=== PATIENT | male | born 1985 | race Caucasian/White ===

== ENCOUNTER 2016-06-20 07:49 | Emergency (ER) | payer SELFPAY ==
[2016-06-20 08:39] LABS: Hematocrit 41 % (42-52); Hemoglobin 14.9 g/dl (14.0-18.0); Mean Corpuscular HGB Conc 36 g/dl (31-36); Mean Corpuscular Hemoglobin 33 pg (27-31); Mean Corpuscular Volume 92 fL (80-94); Mean Platelet Volume 8 um3 (7.4-10.4); Red Cell Distribution Width 13 % (10.5-15); White Blood Count 9.1 10^3/ul (3.5-10.8)
[2016-06-20 08:40] LABS: Comments Flag Yes
[2016-06-20 08:56] LABS: Albumin 4.4 g/dL (3.2-5.2); Calcium 9.2 mg/dL (8.6-10.3); EGFR African American 124.2 (>60); EGFR Non-African American 96.6 (>60); Globulin 3.6 g/dL (2-4); Total Bilirubin 0.4 mg/dL (0.2-1.0)
--- NOTE | 2016-06-20 09:27 | RAD ---
INDICATION: Acute visual loss. COMPARISON: There are no prior studies available for comparison. TECHNIQUE: Contiguous axial sections of the brain were obtained from the skull base to the vertex without contrast. FINDINGS: The ventricles, cisterns and sulci are within normal limits. The pituitary gland appears enlarged and hyperdense suggesting the possibility of a mass or hemorrhage. No other focal abnormalities or mass effect is seen. No significant focal osseous abnormality is seen. The visualized portion of the paranasal sinuses and mastoid air cells appear clear. IMPRESSION: THE PITUITARY GLAND APPEARS ENLARGED AND HYPERDENSE SUGGESTING THE POSSIBILITY OF A MASS OR PITUITARY HEMORRHAGE. RECOMMEND AN MRI OF THE PITUITARY GLAND FOR FURTHER EVALUATION.
[2016-06-20 10:31] LABS: Potassium 4.3 mmol/L (3.5-5.0)
[2016-06-20 10:35] VITALS: BP 126/89
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
== END 2016-06-20 10:53 | disposition short-term general hospital (02) ==
LOC: ED 07:49
DX: D35.2 Benign neoplasm of pituitary gland (principal); H53.9 Unspecified visual disturbance; R51 Headache; R42 Dizziness and giddiness; R55 Syncope and collapse; H54.0 Blindness, both eyes; F17.210 Nicotine dependence, cigarettes, uncomplicated
CPT/HCPCS: 36415; 70450; 80053; 80320; 83605; 85025; 93005; 99283; G0480

== ENCOUNTER 2016-11-29 16:18 | Emergency (ER) | payer SELFPAY ==
[2016-11-29 16:27] VITALS: BP 115/77
--- NOTE | 2016-11-29 17:25 | UC ---
HPI Wound/Suture Re-check - HPI Summary HPI Summary: complaint of stepping on a nail in the middle of his left foot today since then it has become swollen and more painful was able to move the entire nail took some ibuprofen without much relief last tetanus immunization 2016 - History Of Current Complaint Chief Complaint: UCWounds Stated Complaint: STEPPED ON NAIL Time Seen by Provider: 11/29/16 17:07 Hx Obtained From: Patient - Allergies/Home Medications Allergies/Adverse Reactions: Allergies Allergy/AdvReac Type Severity Reaction Status Date / Time TOMATOES Allergy Hives Uncoded 11/29/16 16:27 PMH/Surg Hx/FS Hx/Imm Hx Previously Healthy: Yes - benign brain tumor/cyst opituitary gland - Surgical History Surgical History: None - Family History Known Family History: Positive: Other - brain lesions - mom - Social History Alcohol Use: Occasionally Substance Use Type: Marijuana Smoking Status (MU): Current Every Day Smoker Amount Used/How Often: 1 ppd Review of Systems Constitutional: Negative Skin: Other - puncture wound left foot Eyes: Negative ENT: Negative Respiratory: Negative Cardiovascular: Negative Gastrointestinal: Negative Genitourinary: Negative Motor: Negative Neurovascular: Negative Musculoskeletal: Negative Neurological: Negative Psychological: Negative All Other Systems Reviewed And Are Negative: Yes Physical Exam Triage Information Reviewed: Yes Appearance: No Pain Distress, Well-Nourished Vital Signs: Initial Vital Signs Temp 97.9 F 11/29/16 16:21 Pulse 79 11/29/16 16:21 Resp 18 11/29/16 16:21 BP 115/77 11/29/16 16:21 Pulse Ox 99 11/29/16 16:21 Vital Signs Reviewed: Yes Eyes: Positive: Conjunctiva Clear ENT: Positive: Pharynx normal, TMs normal Neck: Positive: No Lymphadenopathy Respiratory: Positive: Lungs clear, Normal breath sounds, No respiratory distress, No accessory muscle use Cardiovascular: Positive: RRR, No Murmur, Pulses Normal, Brisk Capillary Refill Abdomen Description: Positive: Nontender, Soft Bowel Sounds: Positive: Present Musculoskeletal: Positive: Other: - LLE- puncture wound bottom of foot between 4th and 5th metatarsal edema throughout foot- no area of induration or drainage or erythema Neurological: Positive: Alert Psychological Exam: Normal Skin: Positive: Other - see musculoskeletal Course/Dx - Course Course Of Treatment: left foot x-ray no acute changes - Differential Dx - Laceration/Wound Differential Diagnoses: Abscess, Cellulitis, Hematoma, Other - puncture wound Provider Diagnoses: puncture wound left foot Discharge - Discharge Plan Condition: Stable Disposition: HOME Prescriptions: Levofloxacin TAB* [Levaquin TAB*] 500 mg PO DAILY #5 tab Patient Education Materials: Puncture Wound (ED), RICE Therapy (ED) Forms: *Work Release Referrals: [facility]ERR[facility] [Outside] No Primary Care Phys,NOPCP [Primary Care Provider] - Bandar Low MD [Medical Doctor] - Additional Instructions: Please start antibiotic as directed If you have an increase in pain, redness or swelling in foot please call Dr Low Increase fluids and rest Take acetaminophen or ibuprofen for fever or pain Please review your discharge instructions. If your symptoms do not improve please call your primary care provider or return to urgent care.
[2016-11-29] MEDS ORDERED: HYDROcodone/ACETAMIN 5-325 MG* 1 TAB PO ONE (17:31)
--- NOTE | 2016-11-29 18:33 | RAD ---
INDICATION: No puncture wound to the left mid foot COMPARISON: None. TECHNIQUE: 3 views of the left foot were obtained. FINDINGS: The adequately corticated bones are properly aligned. Joint spaces appear maintained. No fracture, dislocation or focal bony abnormality is seen. No subcutaneous radiodense foreign body is seen overlying the soft tissues of the plantar foot. IMPRESSION: Normal radiograph of the left foot. If the patient's symptoms persist, follow-up imaging is recommended.
== END 2016-11-29 18:48 | disposition home or self-care (01) ==
LOC: UCEAST 16:18
DX: S91.332A Puncture wound without foreign body, left foot, initial encounter (principal); W45.0XXA Nail entering through skin, initial encounter; F12.90 Cannabis use, unspecified, uncomplicated; F17.210 Nicotine dependence, cigarettes, uncomplicated
CPT/HCPCS: 99213; G0463

== ENCOUNTER 2017-05-30 01:06 | Emergency (ER) | payer BC ==
[2017-05-30] MEDS ORDERED: Ketorolac INJ* 60 MG/2 ML VIAL IM ONE (02:27)
[2017-05-30] MEDS ORDERED: oxyCODONE/Acetamin 5/325 MG* TAB PO ONE (02:27)
[2017-05-30 03:59] VITALS: BP 140/73
--- NOTE | 2017-05-30 04:30 | ED ---
Christ Mccarty Gabriel, scribed for Boom Sifuentes MD on 05/30/17 at 0230 . Complex/Multi-Sys Presentation - HPI Summary HPI Summary: This patient is a 32 year old M [facility] his with a chief complaint of right sided tooth ache that began three days ago. The patient rates the pain 7/10 in severity. Symptoms aggravated by movement of the jaw. Patient reports low grade fever. - History Of Current Complaint Chief Complaint: EDDentalPain Time Seen by Provider: 05/30/17 02:09 Hx Obtained From: Patient Onset/Duration: Still Present Timing: Constant Severity Currently: Moderate Severity Initially: Moderate Associated Signs And Symptoms: Positive: Fever, Other - tooth pain - Allergies/Home Medications Allergies/Adverse Reactions: Allergies Allergy/AdvReac Type Severity Reaction Status Date / Time TOMATOES Allergy Hives Uncoded 05/30/17 01:15 PMH/Surg Hx/FS Hx/Imm Hx Endocrine/Hematology History: Denies: Hx Blood Disorders, Hx Blood Transfusions, Hx Diabetes Neurological History: Reports: Other Neuro Impairments/Disorders - 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 Psychiatric History: Denies: Hx Anxiety, Hx Depression, Hx Post Traumatic Stress Disorder - Cancer History Cancer Type, Location and Year: benign brain tumor Infectious Disease History: No Infectious Disease History: Denies: Traveled Outside the [place] in Last 30 Days - Family History Known Family History: Positive: Other - brain lesions - mom Negative: Hypertension, Diabetes, Renal Disease, Respiratory Disease, Seizure Disorder - Social History Lives: With Family Alcohol Use: Occasionally Substance Use Type: Reports: Marijuana Hx Tobacco Use: No Smoking Status (MU): Current Every Day Smoker Amount Used/How Often: 1 ppd Review of Systems Positive: Fever Positive: Other - dental pain All Other Systems Reviewed And Are Negative: Yes Physical Exam - Summary Physical Exam Summary: VITAL SIGNS: Reviewed. GENERAL: Patient is a well-developed and nourished male who is lying comfortable in the stretcher. Patient is not in any acute respiratory distress. HEAD AND FACE: No signs of trauma. No ecchymosis, hematomas or skull depressions. No sinus tenderness. EYES: PERRLA, EOMI x 2, No injected conjunctiva, no nystagmus. EARS: Hearing grossly intact. Ear canals and tympanic membranes are within normal limits. MOUTH: right lower molar is broken with no surrounding inflammation NECK: Supple, trachea is midline, no adenopathy, no JVD, no carotid bruit, no c- spine tenderness, neck with full ROM. CHEST: Symmetric, no tenderness at palpation LUNGS: Clear to auscultation bilaterally. No wheezing or crackles. CVS: Regular rate and rhythm, S1 and S2 present, no murmurs or gallops appreciated. ABDOMEN: Soft, non-tender. No signs of distention. No rebound no guarding, and no masses palpated. Bowel sounds are normal. EXTREMITIES: FROM in all major joints, no edema, no cyanosis or clubbing. NEURO: Alert and oriented x 3. No acute neurological deficits. Speech is normal and follows commands. SKIN: Dry and warm Triage Information Reviewed: Yes Vital Signs On Initial Exam: Initial Vitals Temp Pulse Resp BP Pulse Ox 99.1 F 78 16 118/82 97 05/30/17 01:10 05/30/17 01:10 05/30/17 01:10 05/30/17 01:10 05/30/17 01:10 Vital Signs Reviewed: Yes Diagnostics - Vital Signs Vital Signs Temp Pulse Resp BP Pulse Ox 05/30/17 01:10 99.1 F 78 16 118/82 97 - Laboratory Lab Statement: Any lab studies that have been ordered have been reviewed, and results considered in the medical decision making process. Complex Multi-Symp Course/Dx Assessment/Plan: This patient is a 32 year old M [facility] by his with a chief complaint of right sided tooth ache that began three days ago. The patient rates the pain 7/10 in severity. Symptoms aggravated by movement of the jaw. Patient reports low grade fever. In the ED course the patient was given toradol and Percocet. Dx dental pain, dental caries, dental decay. Patient will be discharged and follow up from his dentist. The patient is agreeable with this plan. - Diagnoses Provider Diagnoses: Pain, dental, Dental caries Discharge - Discharge Plan Condition: Stable Disposition: HOME Prescriptions: Ibuprofen TAB* [Motrin TAB* 800 MG] 800 mg PO Q6H PRN #30 tab PRN Reason: Pain (Dental) Patient Education Materials: Toothache (ED) Referrals: No Primary Care Phys,NOPCP [Primary Care Provider] - Additional Instructions: Follow up with your dentist as soon as possible. RETURN TO EMERGENCY DEPARTMENT FOR ANY NEW OR WORSENING SYMPTOMS The documentation as recorded by the Christ simpson Gabriel accurately reflects the service I personally performed and the decisions made by me, Boom Sifuentes MD.
== END 2017-05-30 03:53 | disposition home or self-care (01) ==
LOC: ED 01:06
DX: K02.9 Dental caries, unspecified (principal); K08.89 Other specified disorders of teeth and supporting structures; R50.9 Fever, unspecified; F17.210 Nicotine dependence, cigarettes, uncomplicated
CPT/HCPCS: 96372; 99281; A9270-GY; J1885

== ENCOUNTER 2017-06-27 22:14 | Emergency (ER) | payer BC ==
[2017-06-27 22:18] VITALS: BP 160/97
== END 2017-06-27 23:33 | disposition left against medical advice (07) ==
LOC: ED 22:14
DX: M54.9 Dorsalgia, unspecified (principal); Z53.21 Procedure and treatment not carried out due to patient leaving prior to being seen by health care provider